=== PATIENT | female | born 1950 | race Caucasian/White ===

== ENCOUNTER 2016-10-18 10:37 | Emergency (ER) | payer MEDICARE, OTHER ==
[2016-10-18 10:58] VITALS: TEMP 98.8
[2016-10-18 12:51] VITALS: BP 126/60; PULSE 83; RESP 14
[2016-10-18] MEDS ORDERED: ACETAMINOPHEN TAB 500 MG TAB PO STA (12:52)
--- NOTE | 2016-10-18 13:06 | XR ---
EXAMINATION TYPE: XR chest 2V DATE OF EXAM: 10/18/2016 COMPARISON: NONE HISTORY: Pain with inspiration, shortness of breath TECHNIQUE: Frontal and lateral views of the chest are obtained. FINDINGS: The patient is rotated. There may be spinal curvature. Postop change noted to the cervical spine. No pneumonia or effusion. Cardiomediastinal silhouette, pulmonary vascularity and adeline are wi thin normal limits. Minimal patchy density present at the left costophrenic angle. There is eventrati on of the right hemidiaphragm. IMPRESSION: Probable basilar atelectasis or scar.
--- NOTE | 2016-10-18 13:23 | ED ---
General Adult HPI - General Chief complaint: Upper Respiratory Infection Stated complaint: SOB,congestion Time Seen by Provider: 10/18/16 10:59 Source: patient, RN notes reviewed Mode of arrival: ambulatory Limitations: no limitations - History of Present Illness Initial comments: Chief complaint and history of present illness is a 66-year-old female here with her . The patient has had pain to her flanks bilaterally. For 4 days. She did some labor approximately 8 days earlier. That may have strained her. Otherwise no direct injury. No fever. No nausea no vomiting. Pain increases with deep breathing as well as pushing back on a chair. More typical of costochondritic pain or muscular skeletal pain. - Related Data Home Medications Medication Instructions Recorded Confirmed Aspirin EC [Ecotrin Low Dose] 81 mg PO HS 10/18/16 10/18/16 Biotin 5 mg PO DAILY 10/18/16 10/18/16 Cyclobenzaprine [Flexeril] 10 mg PO BID PRN 10/18/16 10/18/16 Diltiazem HCl 30 mg PO HS 10/18/16 10/18/16 Lisinopril [Zestril] 2.5 mg PO DAILY 10/18/16 10/18/16 Pravastatin Sodium [Pravachol] 20 mg PO HS 10/18/16 10/18/16 traZODone HCL [Desyrel] 100 - 150 mg PO HS 10/18/16 10/18/16 Previous Rx's Medication Instructions Recorded Hydrocodone/Acetaminophen [Mor[place] 1 each PO Q6HR PRN #16 tab 10/18/16 5-325] Allergies Allergy/AdvReac Type Severity Reaction Status Date / Time Penicillins Allergy Hives, Verified 10/18/16 11:48 eyes swell, throat swells Review of Systems ROS Statement: Those systems with pertinent positive or pertinent negative responses have been documented in the HPI. Review of systems no complaint of visual acuity changes no neck pain no headache no shortness of breath except when she has pain while taking a deep breath. Twisting and turning also re-creates her discomfort to her mid back. She has had pleurisy many years ago. All systems are reviewed. Past medical problems significant for hyperlipidemia hypertension and fast heart rate. Her surgeries include bladder surgery, , gallbladder removal and she's had knee scoped and then eventually bilateral total knees. Family history no cancers. Patient denies any ALLERGIES. Nonsmoker nondrinker. ROS Other: All systems not noted in ROS Statement are negative. Past Medical History Past Medical History: Hyperlipidemia, Hypertension Additional Past Medical History / Comment(s): heart rate History of Any Multi-Drug Resistant Organisms: None Reported Past Surgical History: Bladder Surgery, Section, Cholecystectomy, Orthopedic Surgery Past Psychological History: No Psychological Hx Reported Smoking Status: Never smoker Past Alcohol Use History: None Reported Past Drug Use History: None Reported General Exam - General Exam Comments Initial Comments: General: The patient is awake and alert, complains of reproducible pain through her bilateral latissimus dorsi muscles. Pain increases with palpation pushing back against a chair or taking a deep breath. Vital signs shows temperature 90.8 pulse 82 respiratory rate 20 pulse ox on percent room air blood pressure 123/56 Eye: Pupils are equal, round and reactive to light, extra-ocular movements are intact ; there is normal conjunctiva bilaterally. No signs of icterus. Ears, nose, mouth and throat: There are moist mucous membranes and no oral lesions. Neck: The neck is supple, there is no tenderness . Cardiovascular: There is a regular rate and rhythm. No murmur, rub or gallop is appreciated. Respiratory: Lungs are clear to auscultation, respirations are non-labored, breath sounds are equal. No wheezes, stridor, rales, or rhonchi. Reproducible discomfort to her muscles of her back by twisting turning or pressing hard against a chair. Gastrointestinal: Soft, non-distended, non-tender abdomen without masses or organomegaly noted. There is no rebound or guarding present. No CVA tenderness. Bowel sounds are unremarkable. Back: Mild tenderness to the back through the latissimus dorsi muscles no bruising. No pain to palpation along the spine. Twisting turning bending flexing increases discomfort to the musculature. The patient did tear up rugs a week prior to her pain starting. Musculoskeletal: Normal ROM, no tenderness, There is no pedal edema. There is no calf tenderness or swelling. Sensation intact. Pulses equal bilaterally 2+. Neurological: No neuro deficits Skin: No rash. No bruising. Limitations: no limitations Course Vital Signs 10/18/16 10/18/16 10:53 12:50 Temperature 98.8 F Pulse Rate 82 83 Respiratory 20 14 Rate Blood Pressure 123/56 126/60 O2 Sat by Pulse 100 99 Oximetry EKG Findings - EKG Comments: EKG Findings:: KG was done and reviewed at 1212 showing normal sinus rhythm no acute ST elevation no ectopy no ischemic changes. Rate 71 [place] interval was 142 QRS 72 QT [address] Klein Medical Decision Making - Medical Decision Making Medical decision-making. The patient was given a gram of Tylenol. She states she cannot take steroids or nonsteroidal anti-inflammatories because of previous problems with kidneys. At this time we discussed pleuritic pain or more likely musculoskeletal discomfort possible costochondritis the patient will be placed on an analgesic advised to follow-up with family physician. Disposition Clinical Impression: Costochondritis, acute Disposition: HOME SELF-CARE Condition: Fair Instructions: Costochondritis (ED) Additional Instructions: Do gentle stretching. Hot showers. His pain medication as directed. Follow- up with her family physician. Return emergency room if condition worsens Prescriptions: Hydrocodone/Acetaminophen [Morley 5-325] 1 each PO Q6HR PRN #16 tab PRN Reason: Pain Referrals: Nonstaff,Physician [Primary Care Provider] - 1-2 days Time of Disposition: 13:23
== END 2016-10-18 13:46 | disposition home or self-care (01) ==
LOC: EC 10:37
DX: M94.0 Chondrocostal junction syndrome [Tietze] (principal); I10 Essential (primary) hypertension; E78.5 Hyperlipidemia, unspecified; Z90.49 Acquired absence of other specified parts of digestive tract; Z88.0 Allergy status to penicillin; Z79.82 Long term (current) use of aspirin; Z79.899 Other long term (current) drug therapy
CPT/HCPCS: 71020; 93005; 99283